=== PATIENT | male | born 1975 | race Caucasian/White ===

== ENCOUNTER 2020-12-22 18:46 | Emergency (ER) | payer OTHER, SELFPAY ==
[2020-12-22 18:50] VITALS: BP 162/106; PULSE 82; RESP 18; TEMP 36.9; O2SAT 96; BMI 26.2
--- NOTE | 2020-12-22 18:59 | ECG_ITS ---
[facility] Test Date: 2020-12-22 Pat Name: Ziyad Simpson Department: Room: Gender: Male [employer] Operator: : 1975 Requested By: Kieran Mcnulty Order Number: [id number] Efrain MD: Kati Chaudhary M.D. Measurements Intervals Pipestem Rate: 76 P: 48 IA: 180 QRS: 17 QRSD: 93 T: 36 QT: 382 QTc: 432 Interpretive Statements SINUS RHYTHM NONSPECIFIC T-WAVE ABNORMALITY No previous ECG available for comparison Electronically Signed On 12-23-2020 18:36:29 CDT by Kati Chaudhary M.D. [id number]
--- NOTE | 2020-12-22 18:59 | XRR_ITS ---
PROCEDURE INFORMATION: Exam: XR Chest Exam date and time: 12/22/2020 6:59 PM Age: 45 years old Clinical indication: Pain; Left-sided; Additional info: Chest pain TECHNIQUE: Imaging protocol: XR of the chest. Views: 1 view. COMPARISON: No relevant prior studies available. FINDINGS: Lungs: Unremarkable. No consolidation. Pleural spaces: Unremarkable. No pleural effusion. No pneumothorax. Heart/Mediastinum: Unremarkable. No cardiomegaly. Bones/joints: Unremarkable. XR/XR chest 1V portable [id number] IMPRESSION: No acute findings.
[2020-12-22 19:25] VITALS: BP 167/110; PULSE 84; RESP 22; O2SAT 96
[2020-12-22 19:30] VITALS: BP 152/91; PULSE 76; RESP 18; O2SAT 94
[2020-12-22 19:43] LABS: Basophils # 0.1 10^3/uL (0.0-0.1); Basophils % 0.9 %; Eosinophils # 0.4 10^3/uL (0.0-0.8); Eosinophils % 5.2 %; Hemoglobin 15.6 g/dL (11.7-16.6); Lymphocytes # 2.5 10^3/uL (0.8-4.8); Lymphocytes % 36.8 %; Mean Corpuscular HGB Conc 34.7 g/dL (30.0-36.0); Mean Corpuscular Hemoglobin 31.6 pg (28.0-34.0); Mean Corpuscular Volume 91.3 fl (80-94); Mean Platelet Volume 9.4 fL (7.4-10.4); Monocytes # 0.6 10^3/uL (0.2-0.9); Monocytes % 9.1 %; Neutrophils # 3.22 10^3/uL (1.8-7.7); Neutrophils % 47.9 %; Nucleated Red Blood Cells % 0 %; Platelet Count 271 10^3/cmm (130-400); Red Blood Count 4.93 10^6/uL (4.1-5.3); Red Cell Distribution Width 12.4 % (12.1-15.1); White Blood Count 6.7 10^3/uL (4.0-10.0)
--- NOTE | 2020-12-22 19:53 | ED_ITS ---
HPI - Anxiety General: Chief Complaint: Anxiety Stated Complaint: heart racing, face numb Time Seen by Provider: 12/22/20 18:59 History of Present Illness: HPI narrative: Patient is a 45-year-old male past medical history of hypertension and anxiety. He is currently taking Wellbutrin was taking an unknown blood pressure medicine for 2 days but stopped taking that. Stated about an hour prior to arrival he had a sensation of racing heart rate and numbness around his lips. No numbness in his face and hands or feet. Did not have any chest pain. Was transient lasted about half an hour. Did not have any shortness of breath pain in his shoulder or in his back. He does not have a history of heart disease does not have diabetes does smoke. Did not have any diaphoresis or nausea at the time States the racing heart rate is gone but still has some lingering residual perioral numbness Denies fevers chills chest pain nausea vomiting diarrhea altered mental status syncope shortness of breath or rash Review of Systems General: Reports: 10 or more systems reviewed and unremarkable except in HPI and below Physical Exam Const: COMMON NORMALS: no acute distress, average body habitus and patient oriented x3 EXAM LIMITATIONS: no altered mental status and no behavioral limitations GENERAL APPEARANCE: cooperative, comfortable, well kempt and well developed; not in distress, not anxious and not ill appearing ORIENTATION/CONSCIOUSNESS: Yes awake, Yes oriented to person, Yes oriented to place and Yes oriented to time HENMT: COMMON NORMALS: normocephalic and atraumatic HEAD & SCALP: normocephalic and atraumatic Eye: COMMON NORMALS: Equal, round and reactive pupils present and EOMs intact bilaterally PUPIL: Yes Equal, round and reactive pupils present Resp: COMMON NORMALS: normal respiratory effort and No retractions Cardio: COMMON NORMALS: regular rate, regular rhythm and No murmurs present (Cardio) RATE: regular rate RHYTHM: regular rhythm GI: COMMON NORMALS: Normal to inspection, nondistended, normoactive bowel sounds present, Soft to palpation and non-tender PALPATION: Yes Soft to p alpation Extremity: COMMON NORMALS: normal to inspection and full ROM Neuro: COMMON NORMALS: patient oriented x3, CN's II-XII intact bilaterally, moves all extremities, no focal motor deficits and no sensory deficits noted SENSORIUM/ORIENTATION: Yes oriented to person, Yes oriented to place and Yes oriented to time Psych: COMMON NORMALS: mental status grossly normal, Normal thought process present, cooperative, normal affect, speech normal and activity/motor behavior normal APPEARANCE: Yes well kempt ATTITUDE: Yes calm, Yes engaged, No agitated, No aggressive and No hostile SPEECH: Yes normal speech THOUGHT PROCESS: Normal thought process present Skin: COMMON NORMALS: no rashes or lesions noted GENERAL SKIN EXAM: no rashes or lesions noted Course ED course: Seems likely to be anxiety given perioral numbness and racing heartbeat. He has normal sinus rhythm at this point calm not in any acute distress does not appear anxious. We will go ahead however and work him up for a cardiac issues including EKG chest x-ray also check electrolytes as well. Since he is not not have any chest pain currently will not give and have an aspirin Patient symptoms of largely resolved. Work-up was unremarkable no detectable troponin EKG was normal chest x-ray was normal as well as the rest of his labs not showing any electrolyte abnormalities. Will discharge him at this time. Did recommend that he follow-up with his primary care provider for his hypertension and return with any worsening symptoms at this time he is appropriate for discharge Vital Signs: Vital signs: Vital Signs Temperature 98.5 F 12/22/20 18:50 Pulse Rate 76 12/22/20 19:30 Respiratory Rate 18 12/22/20 19:30 Blood Pressure 152/91 12/22/20 19:30 Pulse Oximetry 94 12/22/20 19:30 MDM - Anxiety MDM Narrative: Medical decision making narrative: Patient is a 45-year-old male here with perioral numbness and racing heart rate Most likely anxiety. Does not have any current chest pain no other signs or symptoms of ischemia. EKG read is normal. Will wait for laboratory results and chest x-ray Differential Diagnosis: Differential diagnosis anxiety: Likely hyperventilation, panic disorder and acute anxiety Medical Records: Attestation: I reviewed the patient's medical records. EKG Data^: EKG 1: EKG interpretation date: 12/22/20 EKG interpretation time: 20:01 Interpretation: Chest X-Ray 12/22/20 18:59 IMPRESSION: No acute findings. Other EKG comments: Chest X-Ray 12/22/20 18:59 IMPRESSION: No acute findings. Normal sinus rhythm no evidence of ischemia or infarct normal axis normal intervals Lab Data: Labs: Lab Results 12/22/20 12/22/20 12/22/20 Range/Units 19:15 19:15 19:15 WBC 6.7 (4.0-10.0) 10^3/ uL RBC 4.93 (4.1-5.3) 10^6/u L Hgb 15.6 (11.7-16.6) g/dL Hct 45.0 (42.0-52.0) % MCV 91.3 (80-94) fl MCH 31.6 (28.0-34.0) pg MCHC 34.7 (30.0-36.0) g/dL RDW 12.4 (12.1-15.1) % Plt Count 271 (130-400) 10^3/c mm MPV 9.4 (7.4-10.4) fL Neut % (Auto) 47.9 % Lymph % (Auto) 36.8 % Kern % (Auto) 9.1 % Eos % (Auto) 5.2 % Baso % (Auto) 0.9 % Neut # (Auto) 3.22 (1.8-7.7) 10^3/u L Lymph # (Auto) 2.5 (0.8-4.8) 10^3/u L Kern # (Auto) 0.6 (0.2-0.9) 10^3/u L Eos # (Auto) 0.4 (0.0-0.8) 10^3/u L Baso # (Auto) 0.1 (0.0-0.1) 10^3/u L Nucleated RBC % (a uto) 0 % Nucleated RBCs # 0.0 /100WBC Sodium 136 (136-145) mmol/L Potassium 4.1 (3.5-5.1) mmol/L Chloride 101 (98-107) mmol/L Carbon Dioxide 23 (22-29) mmol/L Anion Gap 16.1 (5-19) BUN 8 (6-20) mg/dL Creatinine 0.9 (0.7-1.2) mg/dL GFR Calculation 90.8 (90-130) mL/min Glucose 85 (65-115) mg/dL Calculated Osmolal ity 280 L (285-295) mOsm/k g Calcium 8.9 (8.5-10.5) mg/dL Total Bilirubin 0.3 (0.15-1.2) mg/dL AST 20 (0-40) U/L ALT 17 (0-41) U/L Alkaline Phosphata se 109 (40-130) IU/L Troponin T Baselin e 6 (0-15) ng/L Total Protein 6.9 (6.6-8.7) g/dL Albumin 4.4 (3.5-5.2) g/dL Globulin 2.5 (1.3-4.6) g/dL Discharge Plan Discharge Patient Disposition: Home Clinical Impression: Acute anxiety Condition: Stable Discharge Orders: Discharge ED (Routine); Ordered 12/22/20 Ordered By: Kieran Nieves Referrals: Narcisa Leon PA [Primary Care Provider] - Patient Instructions: Anxiety (ED) Activity Restrictions/Additional Instructions: Follow-up with your primary care provider in 3 to 5 days. Return the emergency department with any new or worsening symptoms in particular chest pain particularly radiates across her chest down your left arm and your neck or jaw or is accompanied by nausea sweating or shortness of breath. Return with any other concerning symptoms as well Coding Level of Care Code ED Account Executive Sales Representative for [employer]y Fwd Exam Comprehensive
[2020-12-22 20:08] LABS: Troponin(5th) Baseline 6 ng/L (0-15)
[2020-12-22 20:10] LABS: Alanine Aminotransferase 17 U/L (0-41); Albumin Level 4.4 g/dL (3.5-5.2); Alkaline Phosphatase 109 IU/L (40-130); Aspartate Amino Transferase 20 U/L (0-40); Blood Urea Nitrogen 8 mg/dL (6-20); Calcium 8.9 mg/dL (8.5-10.5); Carbon Dioxide 23 mmol/L (22-29); Chloride 101 mmol/L (98-107); Globulin 2.5 g/dL (1.3-4.6); Glomerular Filtration Rate 90.8 mL/min (90-130); Glucose 85 mg/dL (65-115); Osmolality Calculated 280 mOsm/kg (285-295); Sodium 136 mmol/L (136-145); Total Bilirubin 0.3 mg/dL (0.15-1.2); Total Protein 6.9 g/dL (6.6-8.7)
[2020-12-22 20:18] LABS: Anion Gap 16.1 (5-19); Potassium 4.1 mmol/L (3.5-5.1)
[2020-12-22 20:40] VITALS: BP 140/96; PULSE 78; RESP 18; O2SAT 100
== END 2020-12-22 20:43 | disposition home or self-care (01) ==
PROVIDERS: Emergency Provider Family Medicine; PCP Physician Assistant
DX: F41.9 Anxiety disorder, unspecified (principal)
CPT/HCPCS: 71045; 80053; 84484; 85025; 93005; 99283

== ENCOUNTER → 2023-03-14 18:08 | Outpatient (BNVA) | payer OTHER, SELFPAY | PROVIDERS: PCP Physician Assistant; Visit Provider Registered Nurse Neonatal Intensive Care | DX: J02.9 Acute pharyngitis, unspecified (principal) | CPT/HCPCS: 87880 ==

== ENCOUNTER → 2023-04-29 15:45 | Outpatient (BNVA) | payer OTHER, SELFPAY | PROVIDERS: PCP Physician Assistant; Visit Provider Family Medicine | DX: J02.9 Acute pharyngitis, unspecified (principal); J01.90 Acute sinusitis, unspecified | CPT/HCPCS: 87880 ==